=== PATIENT | female | born 1970 | race Caucasian/White ===

== ENCOUNTER 2020-12-01 02:56 | Emergency (ER) | payer MEDICARE ==
[~2020-12-01] VITALS: Ht 167.6 cm; Wt 113.6 kg
[2020-12-01 03:04] VITALS: BP 116/83
== END 2020-12-01 07:25 | disposition left against medical advice (07) ==
LOC: ER 02:57
DX: M79.671 Pain in right foot (principal); Z53.21 Procedure and treatment not carried out due to patient leaving prior to being seen by health care provider

== ENCOUNTER 2022-10-07 05:36 | Day surgery (SDC) | payer MEDICARE ==
[2022-10-01 12:33] LABS: BASOPHILS % (AUTO) 0.7 % (0-1); EOSINOPHILS # (AUTO) 0.2 X10'3 (0-0.9); EOSINOPHILS % (AUTO) 4.5 % (0-6); LYMPHOCYTES # (AUTO) 1.6 X10'3 (1.1-4.8); LYMPHOCYTES % (AUTO) 35.2 % (21-51); MEAN CORPUSCULAR HEMOGLOBIN 35.4 PG (27.0-31.0); MEAN CORPUSCULAR HGB CONC 34.2 g/dL (33.0-36.5); MEAN CORPUSCULAR VOLUME 103.5 FL (78-98); MEAN PLATELET VOLUME 7.6 FL (7.4-10.4); MONOCYTES # (AUTO) 0.3 X10'3 (0-0.9); MONOCYTES % (AUTO) 5.8 % (2-12); NEUTROPHILS # (AUTO) 2.5 X10'3 (1.8-7.7); NEUTROPHILS % (AUTO) 53.8 % (42-75); PRE OP HEMATOCRIT 28.3 % (35.0-45.0); PRE OP PLATELET COUNT 224 X10'3 (140-440); RED BLOOD COUNT 2.73 X10'6 (4.20-5.60); RED CELL DISTRIBUTION WIDTH 13.8 % (11.5-14.5)
[2022-10-01 12:40] LABS: PRE OP HEMOGLOBIN 9.7 g/dL (12.0-16.0)
[2022-10-01 12:49] LABS: ALBUMIN/GLOBULIN RATIO 1.1 (1.1-1.5); ALKALINE PHOSPHATASE 78 IU/L (46-116); BLOOD UREA NITROGEN 24 MG/DL (7-18); BUN/CREATININE RATIO 13.8 (10.0-20.0); CALCIUM 8.8 MG/DL (8.5-10.1); CHLORIDE 101 MMOL/L (99-107); CREATININE 1.74 MG/DL (0.40-0.90); PRE OP ALT 23 U/L (30-65); PRE OP ANION GAP 10 (8-16); PRE OP AST 18 U/L (10-37); PRE OP BILIRUB, TOTAL 0.4 MG/DL (0.0-1.0); PRE OP GLUCOSE 77 MG/DL (70-104); PRE OP SODIUM 135 MMOL/L (135-145); TOTAL PROTEIN 7.6 G/DL (6.4-8.2); eGFR 31 ML/MIN
[2022-10-07] VITALS (24 sets, daily range): BP systolic 116–155; BP diastolic 46–78; PULSE 49–70; RESP 8–20; TEMP 97.3–98; O2SAT 91–100
[~2022-10-07] VITALS: Ht 162.6 cm; Wt 100.0 kg
[~2022-10-07 05:36] MED LIST: ATOR-2 PO; DOCUMENT DATE & TIME OF BETA-BLOCKER PO ONE; HYDR-3972 PO; LEVO50TA8 PO; LISI20TA28 PO; LORA2TAB96 PO; METO100T14 PO; QUET300T20 PO; acetaminophen 325mg tablet PO ONE; cefazolin 2gm/D5W 100mL 100 ML IV ONE; celeCOXIB 100mg capsule PO ONE; famotidine 20mg tablet PO ONE; gabapentin 300mg capsule PO ONE; metoclopramide 5 mg/ml inj IV ONE; oxyCODONE SR 10mg (sust. release) tab -2 tabs (20mg) PO ONE; tranexamic acid inj. 1,000 MG in normal saline IV soln 100ML IV ONE; vancomycin 1,500 MG in NS 300ml IV soln IV ONE
--- NOTE | 2022-10-07 06:00 | NUR ---
TOTAL JOINT CHARTING:MD DOES NOT ORDER MUPIROCIN OINTMENT PREOP. PT DID COMPLETE 5 DAYS HIBICLENS SHOWERS. DID NOT WATCH THE ONLINE VIDEO, DID READ THE BOOKLET. [facility] WNL. LEFT DORSAL PEDALIS PULSE STRONG AND MARKED. Addendum: 10/07/22 at 0951 by Alyse Avendaño RN Amended: Links added.
[2022-10-07] MEDS: ringers solution, lacted 1,000 ML IV SCH ×2 (06:40→16:58)
[2022-10-07] MEDS ORDERED: ondansetron/PF 4mg/2ml inj IV PRN ×2 (07:25→08:50)
[2022-10-07] MEDS ORDERED: magnesium hydroxide 30ml (MOM) UD suspension PO PRN (07:25)
[2022-10-07] MEDS ORDERED: HYDROmorphone 1 mg/ml syringe IV PRN (07:25)
[2022-10-07] MEDS ORDERED: diphenhydrAMINE 25mg capsule PO PRN ×2 (07:25)
[2022-10-07] MEDS ORDERED: bisacodyl 10mg suppository rectal RC PRN (07:25)
[2022-10-07] MEDS ORDERED: oxyCODONE IR 5mg (immed. release) tablet PO PRN ×2 (07:25)
[2022-10-07] MEDS ORDERED: acetaminophen 325mg tablet PO PRN (07:25)
[2022-10-07] MEDS ORDERED: HYDROmorphone inj. 0.5 MG/0.5 ML DISP.SYRIN IV PRN (07:25)
[2022-10-07] MEDS ORDERED: naloxone 0.4 mg/ml inj IV PRN (07:25)
[2022-10-07] MEDS ORDERED: morphine 2 MG/ML inj. syringe IV PRN (08:50)
[2022-10-07] MEDS ORDERED: ringers solution, lacted 1,000 ML IV SCH (08:50)
[2022-10-07] MEDS ORDERED: morphine 4 MG/ML inj SYRINge IV PRN (08:50)
[2022-10-07] MEDS ORDERED: meperidine/PF 25mg/ml syringe IV PRN ×2 (08:50)
[2022-10-07] MEDS ORDERED: labetalol 20mg/4ml (5mg/ml) syringe IV PRN (08:50)
[2022-10-07] MEDS ORDERED: acetaminophen 1,000mg/100ml IV 100 ML IV PRN (08:50)
[2022-10-07] MEDS ORDERED: ketorolac trometh. 30mg/ml inj. IV ONE (08:50)
[2022-10-07] MEDS ORDERED: proCHLORperazine 10 MG/2 ml inj IV PRN (08:50)
[2022-10-07] MEDS ORDERED: hydrALAZINE 20mg/ml inj. IV PRN (08:50)
[2022-10-07] MEDS ORDERED: ROPIVAcaine 0.5% (5mg/ml) 30ml vial ONE (09:28)
[2022-10-07] MEDS ORDERED: epiNEPHrine 1 mg/ml inj ONE (09:28)
[2022-10-07] MEDS ORDERED: vancomycin 1,000mg inj ONE (09:28)
[2022-10-07] MEDS ORDERED: cloNIDine hcl/PF 100mcg/ml inj ONE (09:28)
[2022-10-07] MEDS ORDERED: sevoflurane 250ml liquid IH ONE (10:21)
[2022-10-07] MEDS ORDERED: fentaNYL/PF 50MCG/1 ML 2ML syringe ONE (10:23)
[2022-10-07] MEDS ORDERED: midazolam 1 mg/ML 2ml injection ONE (10:23)
[2022-10-07] MEDS ORDERED: propofol inj 20 ML IV ONE ×3 (10:25)
[2022-10-07] MEDS ORDERED: ondansetron/PF 4mg/2ml inj ONE (11:17)
[2022-10-07] MEDS ORDERED: rocuronium 10mg/ml inj IV ONE (11:17)
[2022-10-07] MEDS ORDERED: dexamethasone sod phosphate 4mg/ml inj. ONE (11:17)
[2022-10-07] MEDS ORDERED: ROPIVAcaine 0.5% (5mg/ml) 30ml vial IJ ONE (11:43)
[2022-10-07] MEDS ORDERED: cloNIDine hcl/PF 100mcg/ml inj IJ ONE (11:44)
[2022-10-07] MEDS ORDERED: epiNEPHrine 1 mg/ml inj SQ ONE (11:46)
--- NOTE | 2022-10-07 12:37 | NUR ---
Received from OR via , accompanied by Anesthesiologist DR STONE and report given by Anesthesiolgist. VSS. IV IN L HAND 20 G. ARABELLA DRERSSING ON L HIP AND KNEE BRACE ON L KNEE. MASK ON 8 LITERS AT 100% Addendum: 10/07/22 at 1326 by Ashleigh Cline RN Amended: Links added.
[2022-10-07] MEDS: meperidine/PF 25mg/ml syringe IV PRN ×2 (13:15→14:11)
--- NOTE | 2022-10-07 14:13 | NUR ---
Received report from Ashleigh ZUÑIGA. Questions answered.
--- NOTE | 2022-10-07 14:27 | NUR ---
PATIENT MEETS DISCHARGE CRITERIA. VSS. ON 2 LITERS OF 02 WITH N/C SATTING AT 100%. DRESSING CDI. REPORT GIVEN TO MONIE PATEL. BROUGHT PATIENT TO THE ROOM. LOWERED AND LOCKED THE BED. CALL LIGHT WITHIN REACH. PRODUCE TEAM LEAD AT BEDSIDE STARTING V/S Addendum: 10/07/22 at 1432 by Ashleigh Cline RN Amended: Links added.
--- NOTE | 2022-10-07 14:30 | NUR ---
Assumed patient care, admitted into [facility] via [facility]. Pt alert and appropriate at the time of admission, vss, oriented to call light and safety precautions. SCDS in place and functioning appropriately. DRSG CDI, immobilizer in place.
[2022-10-07] MEDS ORDERED: tranexamic acid inj. 1,000 MG in normal saline 100ml IV soln 90 ML IV ONE (16:00)
[2022-10-07] MEDS: cefazolin 2gm/D5W 100mL 100 ML IV SCH (16:10)
[2022-10-07] MEDS: potassium cl 20mEq in 1/2 NS 1,000 ML IV SCH ×3 (16:58→23:44)
--- NOTE | 2022-10-07 18:00 | NUR ---
I have reviewed and agree with interventions, assessments, and documentation by Mavis Cortez LVN.
[2022-10-07] MEDS ORDERED: VANCOMYCIN 1,500MG inj. 1,500 MG in normal saline 500ml IV soln 300 ML IV ONE (20:00)
[2022-10-07] MEDS: LORazepam 1 MG tablet PO SCH (20:38)
[2022-10-07] MEDS: acetaminophen 325mg tablet PO SCH (20:38)
[2022-10-07] MEDS: ascorbic acid 500mg tablet PO SCH (20:38)
[2022-10-07] MEDS: metoprolol tartrate 50mg tablet PO SCH (20:40)
[2022-10-07] MEDS: gabapentin 300mg capsule PO SCH (20:41)
[2022-10-07] MEDS ORDERED: sennosides 8.6mg tablet PO SCH (21:00)
[2022-10-07] MEDS ORDERED: quetiapine fumarate ER 300mg tablet PO SCH (21:00)
[2022-10-08] MEDS: cefazolin 2gm/D5W 100mL 100 ML IV SCH ×2 (00:29→09:25)
[2022-10-08 02:00] VITALS: BP 128/67; PULSE 75; RESP 14; TEMP 98.7; O2SAT 96
[2022-10-08] MEDS: acetaminophen 325mg tablet PO SCH ×2 (02:11→09:06)
[2022-10-08 06:00] VITALS: BP 124/61; PULSE 66; RESP 16; TEMP 97.9; O2SAT 97
--- NOTE | 2022-10-08 06:25 | NUR ---
Problems reprioritized. Patient report given, questions answered & plan of care reviewed with AMANDA HAYES.
[2022-10-08 06:48] LABS: BASOPHILS % (AUTO) 0.1 % (0-1); EOSINOPHILS % (AUTO) 0 % (0-6); HEMATOCRIT 28.5 % (35.0-45.0); HEMOGLOBIN 9.7 g/dl (12.0-16.0); LYMPHOCYTES # (AUTO) 0.6 X10'3 (1.1-4.8); LYMPHOCYTES % (AUTO) 7.5 % (21-51); MEAN CORPUSCULAR HEMOGLOBIN 35.2 PG (27.0-31.0); MEAN CORPUSCULAR HGB CONC 34.1 g/dL (33.0-36.5); MEAN CORPUSCULAR VOLUME 103.2 FL (78-98); MEAN PLATELET VOLUME 7.5 FL (7.4-10.4); MONOCYTES # (AUTO) 0.5 X10'3 (0-0.9); MONOCYTES % (AUTO) 6.1 % (2-12); NEUTROPHILS # (AUTO) 6.4 X10'3 (1.8-7.7); NEUTROPHILS % (AUTO) 86.3 % (42-75); PLATELET COUNT 221 X10'3 (140-440); RED BLOOD COUNT 2.76 X10'6 (4.20-5.60); RED CELL DISTRIBUTION WIDTH 13.5 % (11.5-14.5); WHITE BLOOD COUNT 7.4 X10'3 (4.5-11.0)
[2022-10-08 06:54] LABS: ANION GAP 9 (8-16); CHLORIDE 107 MMOL/L (99-107); SODIUM 137 MMOL/L (135-145); TOTAL CARBON DIOXIDE 20.7 MMOL/L (24-32)
[2022-10-08] MEDS ORDERED: levoTHYROXINE 25mcg tablet PO SCH (07:00)
[2022-10-08] MEDS: potassium cl 20mEq in 1/2 NS 1,000 ML IV SCH (07:25)
[2022-10-08] MEDS ORDERED: multivitamins, therapeutics tablet PO SCH (08:00)
[2022-10-08] MEDS ORDERED: lisinopril 20mg tablet PO SCH (08:00)
[2022-10-08] MEDS ORDERED: atorvastatin 20mg tablet PO SCH (08:00)
[2022-10-08] MEDS ORDERED: aspirin 325mg tablet PO SCH (08:30)
[2022-10-08] MEDS: gabapentin 300mg capsule PO SCH (09:06)
[2022-10-08] MEDS: ascorbic acid 500mg tablet PO SCH (09:07)
[2022-10-08] MEDS: metoprolol tartrate 50mg tablet PO SCH (09:08)
[2022-10-08] MEDS: LORazepam 1 MG tablet PO SCH (09:09)
--- NOTE | 2022-10-08 09:55 | NUR ---
Joint surgery consult: Pt s/p L hip surgery this admit per EMR. Pt seen by RD at bedside for written/verbal high protein diet ed w/ RD contact information provided. Noted pt MCV 103.2; pt reports hx gastric bypass one year ago takes routine bariatric MVM daily per rx. RD educated pt on ONS options for wound healing to assist meeting protein/energy needs post-op. RD encouraged pt to contact dietitian's office if further nutrition questions/concerns. Addendum: 10/08/22 at [address] Amended: Links added.
[2022-10-08 09:57] VITALS: RESP 16; O2SAT 97
[2022-10-08 10:00] VITALS: BP 118/55; PULSE 61; RESP 16; TEMP 97.1; O2SAT 97
--- NOTE | 2022-10-08 12:19 | NUR ---
Patient discharged home via POV with daughter and all of her personal belongings. PIV discontinued. Patient alert and appropriate at the time of discharge.
[2022-10-08] MEDS ORDERED: celeCOXIB 100mg capsule PO SCH (20:00)
== END 2022-10-08 12:16 | disposition home or self-care (01) ==
LOC: PAS 05:36 → ORTHO 4S 11:59 → PAS 10-08 12:16
PROVIDERS: ATTEND Orthopaedic Surgery
DX: M16.12 Unilateral primary osteoarthritis, left hip (principal); G47.33 Obstructive sleep apnea (adult) (pediatric); I10 Essential (primary) hypertension; F32.A Depression, unspecified; F41.9 Anxiety disorder, unspecified; E66.9 Obesity, unspecified; Z68.37 Body mass index [BMI] 37.0-37.9, adult; Z98.890 Other specified postprocedural states; Z98.84 Bariatric surgery status; Z90.710 Acquired absence of both cervix and uterus; Z87.891 Personal history of nicotine dependence; Z79.899 Other long term (current) drug therapy; Z72.89 Other problems related to lifestyle
CPT/HCPCS: 27130; 36415; 72170; 80051; 80053; 82948; 85025; 86885; 86900; 86901; 87081; 97110; 97116; 97161; C1776; J0131; J0171; J0690; J0735; J1100; J2175; J2250; J2405; J2704; J2765; J2795; J3010; J3370; J3480; J3490; J7030; J7040; J7120; Z7506; Z7508; Z7512; 97530; A4615; A7000; G0378

== ENCOUNTER 2024-01-18 08:42 | Outpatient (CLI) | payer MEDICARE ==
[~2024-01-18 08:42] MED LIST changes: -DOCUMENT DATE & TIME OF BETA-BLOCKER PO ONE; -acetaminophen 325mg tablet PO ONE; -cefazolin 2gm/D5W 100mL 100 ML IV ONE; -celeCOXIB 100mg capsule PO ONE; -famotidine 20mg tablet PO ONE; -gabapentin 300mg capsule PO ONE; -metoclopramide 5 mg/ml inj IV ONE; -oxyCODONE SR 10mg (sust. release) tab -2 tabs (20mg) PO ONE; -tranexamic acid inj. 1,000 MG in normal saline IV soln 100ML IV ONE; -vancomycin 1,500 MG in NS 300ml IV soln IV ONE
== END 2024-01-18 23:59 | disposition home or self-care (01) ==
LOC: RAD 08:42
PROVIDERS: ATTEND Student in an Organized Health Care Education/Training Program
DX: S09.93XA Unspecified injury of face, initial encounter (principal); J34.89 Other specified disorders of nose and nasal sinuses; G93.89 Other specified disorders of brain; X58.XXXA Exposure to other specified factors, initial encounter; Y93.89 Activity, other specified; Y92.89 Other specified places as the place of occurrence of the external cause; Y99.8 Other external cause status
CPT/HCPCS: 70450; 70486

== ENCOUNTER 2024-05-20 06:10 | Day surgery (SDC) | payer MEDICARE ==
[2024-05-20] VITALS (9 sets, daily range): BP systolic 120–143; BP diastolic 62–85; PULSE 58–72; RESP 14–16; TEMP 97.8; O2SAT 94–99
[~2024-05-20] VITALS: Ht 167.6 cm; Wt 104.8 kg
[2024-05-20] MEDS ORDERED: GABA300C PO (07:20)
[2024-05-20] MEDS ORDERED: BUSP15TA3 PO (07:20)
[2024-05-20] MEDS ORDERED: PROP10TA10 PO (07:20)
[2024-05-20] MEDS ORDERED: ASPI-611 PO (07:20)
[2024-05-20 07:26] LABS: BASOPHILS % (AUTO) 0.7 % (0-1); EOSINOPHILS # (AUTO) 0.1 X10'3 (0-0.9); EOSINOPHILS % (AUTO) 2.2 % (0-6); HEMATOCRIT 33.1 % (35.0-45.0); HEMOGLOBIN 11.3 g/dl (12.0-16.0); LYMPHOCYTES # (AUTO) 1.4 X10'3 (1.1-4.8); LYMPHOCYTES % (AUTO) 38.6 % (21-51); MEAN CORPUSCULAR HEMOGLOBIN 37.7 PG (27.0-31.0); MEAN CORPUSCULAR HGB CONC 34.2 g/dL (33.0-36.5); MEAN CORPUSCULAR VOLUME 110.2 FL (78-98); MEAN PLATELET VOLUME 7.8 FL (7.4-10.4); MONOCYTES # (AUTO) 0.3 X10'3 (0-0.9); NEUTROPHILS # (AUTO) 1.8 X10'3 (1.8-7.7); NEUTROPHILS % (AUTO) 51.5 % (42-75); PLATELET COUNT 206 X10'3 (140-440); RED BLOOD COUNT 3.01 X10'6 (4.20-5.60); WHITE BLOOD COUNT 3.6 X10'3 (4.5-11.0)
[2024-05-20 07:30] LABS: APTT 25 SECONDS (22-32); INR 1.1 INR; PROTHROMBIN TIME 11.1 SECONDS (9.0-12.0)
[2024-05-20 07:38] LABS: ALANINE AMINOTRANSFERASE 14 U/L (12-78); ALBUMIN 3.5 G/DL (3.4-5.0); ALKALINE PHOSPHATASE 59 IU/L (46-116); ANION GAP 11 (8-16); ASPARTATE AMINO TRANSFERASE 12 U/L (10-37); BILIRUBIN,TOTAL 0.3 MG/DL (0.1-1.0); BLOOD UREA NITROGEN 39 MG/DL (7-18); BUN/CREATININE RATIO 19.6 (10.0-20.0); CALCIUM 8.7 MG/DL (8.5-10.1); CHLORIDE 106 MMOL/L (99-107); CREATININE 1.99 MG/DL (0.40-0.90); GLUCOSE 100 MG/DL (70-104); SODIUM 139 MMOL/L (135-145); TOTAL CARBON DIOXIDE 22.4 MMOL/L (24-32); eCRCL 31 ML/MIN; eGFR 26 ML/MIN
[2024-05-20] MEDS: normal saline 1000ml 1,000 ML IV SCH (08:03)
== END 2024-05-20 11:25 | disposition home or self-care (01) ==
LOC: SSTAY O 06:10
PROVIDERS: ATTEND Physician Assistant
DX: M76.11 Psoas tendinitis, right hip (principal); M16.11 Unilateral primary osteoarthritis, right hip; Z79.01 Long term (current) use of anticoagulants; Z79.899 Other long term (current) drug therapy; Z96.641 Presence of right artificial hip joint
CPT/HCPCS: 20611; 80053; 85025; 85610; 85730; 87070; A4620; J7030; Z7610; 10030; 49406; 77002